=== PATIENT | male | born 1940 | race Caucasian/White ===

== ENCOUNTER 2021-03-15 01:41 | Outpatient (CLI) | payer MEDICARE, OTHER, SELFPAY ==
--- NOTE | 2021-03-15 | DI.US_ITS ---
APPROVED REPORT EXAM: Comprehensive 2D, Doppler, and color-flow Echocardiogram Patient Location: Out-Patient Telecommunications Analyst: Shruti Lara RDCS (AE) Indications: Chronic Atrial Fibrillation, Recent STEMI, Reassess LV Function Other Information Study Quality: Adequate Conclusion Left Ventricle : The left ventricle is normal size. Left ventricular systolic function is mildly decr eased. There is normal left ventricular wall thickness. There is global hypokinesis of the left ventr icle. The left ventricular diastolic function is normal. LVEF is 45%. Right Ventricle : Right ventricle is grossly normal in size. Right ventricular systolic function is g rossly normal. Atria : The left atrium size is normal. The right atrium size is normal. There are no hemodynamically significant valvular lesions. Great Vessels : The aortic root is normal in size. The ascending aorta is normal in size. Aortic arch is not well visualized. The IVC was not visualized. Wall motion Left Ventricle The left ventricle is normal size. Left ventricular systolic function is mildly decreased. There is n ormal left ventricular wall thickness. There is global hypokinesis of the left ventricle. The left ve ntricular diastolic function is normal. There is no ventricular septal defect visualized. LVEF is 45% . Right Ventricle Right ventricle is grossly normal in size. Right ventricular systolic function is grossly normal. Atria The left atrium size is normal. The right atrium size is normal. The interatrial septum is intact wit h no evidence for an atrial septal defect. Aortic Valve The aortic valve is normal in structure. Aortic valve is trileaflet. There is no aortic valvular sten osis. No aortic regurgitation is present. Mitral Valve Mild mitral annular calcification. No evidence of mitral valve stenosis. Trace mitral regurgitation. Tricuspid Valve The tricuspid valve is normal in structure. There is no tricuspid valve stenosis. Trace tricuspid reg urgitation. Unable to assess PA pressure. Pulmonic Valve The pulmonary valve is normal in structure. There is no pulmonic valvular stenosis. Trace pulmonic re gurgitation. Great Vessels The aortic root is normal in size. The ascending aorta is normal in size. Aortic arch is not well vis ualized. The IVC was not visualized. Pericardium There is no pericardial effusion. 2D Dimensions IVSD d PLAX 1.17 cm M: 0.6-1.2 LV Vol A2C d MOD 159.6 mL LVPW d PLAX 1.10 cm M: 0.6 - 1.2 LV Vol A4C d MOD 170.8 mL LVID d PLAX 5.13 cm M: 4.2 - 5.8 LA vol/ BSA A2C s A-L 25.6 mL/m2 LVDs 3.90 cm M: 2.5 - 4.0 LA vol/ BSA A4C s A-L 21.5 mL/m2 Ao Root d 3.05 cm M: 3.1 - 3.7 LA Vol/ BSA Biplane s A-L 23.9 mL/m2 RA Area A4C 13.03 cm2 LA Area A4C s MOD 16.67 cm2 RA Vol/ BSA A4C s A-L 15.3 mL/m2 LA Area A2C s MOD 17.88 cm2 Ao Asc Diam d 3.11 cm M: 2.6 - 3.4 LV EF A4C MOD 46.2 % LV EF Teichholz 46.2 % LV EF A2C MOD 45.4 % LVEF ([place]'s) 45.33 % M: 52 - 72 LV EF Biplane MOD 45.3 % LV Volume 123.55 mL M: 62 - 150 SV 75.97 mL LV Volume Index 58.83 mL/m2 M: 34 - 74 SV Index 36.05 mL/m2 LV Vol Biplane MOD 167.6 mL FS 23.20 % LV Diastology MV E' medial 0.051 (>0.07 m/s) E/A Ratio 1.0 LV E/e MED 13.60 (<14) MV E Vmax 0.70 (0.4-1.3 m/s) MV E' lateral 0.079 (>0.1 m/s) MV A Vmax 0.70 (0.4-1.3 m/s) LV E/e LAT 8.80 (<14) MV E/A Ratio 0.96 MV E/E' medial 13.62 MV E/E' lateral 8.80 Aortic Valve LVOT Area 2.92 cm2 AoV Area Vmax 2.31 cm2 LVOT Vmax 0.90 m/s AoV Area/ BSA (Vmax) 1.10 cm2/m2 LVOT Mean Basil. 0.58 m/s FATEMEH Mean Basil. 1.94 cm2 LVOT Peak Grad 3.2 mmHg FATEMEH Mean Basil. Index 0.92 cm2/m2 LVOT Mean Grad 1.6 mmHg LVOT VTI 0.212 m LVOT Diam s 1.90 cm AoV Vmax 1.13 m/s Velocity Ratio 0.79 AoV Mean Basil. 0.88 m/s AoV Peak Grad 5.1 mmHg LVOT SV 61.79 mL AoV Mean Grad 3.3 mmHg AoV VTI 0.288 m AoV Area VTI 2.15 cm2 AoV Area/ BSA (VTI) 1.02 cm/m2 Mitral Valve MV DT 352 (160-240 msec) MV PHT 102 msec MV Area PHT 2.15 cm2 MV VTI 0.383 m MV VTI Annulus 0.387 m MV Area VTI 1.63 (4.0-6.0 cm2) Pulmonary Valve PV Vmax 0.95 (0.5-1.5 m/s) RVOT Peak Gr. 2.72 mmHg PV Peak Grad 3.6 mmHg RVOT Mean Gr. 1.05 mmHg PV Mean Grad 1.7 mmHg RVOT VTI 0.122 m PV VTI 0.203 m RVOT Vmax 0.82 m/s
== END 2021-03-15 02:01 ==
PROVIDERS: PCP Internal Medicine; Visit Provider Internal Medicine Interventional Cardiology
DX: I48.20 Chronic atrial fibrillation, unspecified (principal); I25.2 Old myocardial infarction
CPT/HCPCS: 93306